=== PATIENT | male | born 1950 | race Caucasian/White ===

== ENCOUNTER → 2025-01-21 | Outpatient (CLI) | payer MEDICARE, SELFPAY ==
--- NOTE | 2025-01-21 08:00 | XR_ITS ---
Examination: MRI lumbar spine without contrast Date and time of exam: January 21, 2025 0900 hrs. Indications: Patient fell 6 months ago with injury to lower back, lower back pain Technique: Multiple MRI axial and sagittal sections lumbar spine. Sagittal T2-weighted images, TR 3500, TE 118 T1 weighted transverse sections, TR 688 T8.5, T2-weighted sagittal sections T1 weighted sagittal sections TR 621, TE 30 T2 axial sections, TR 4, 190, TE 84. Findings: Severe subacute compression fracture L2 vertebral body, retropulsion of the posterior aspect of this vertebral body at least 8 mm No spondylolisthesis L5-S1 2 mm central lumbar disc bulge L4-L5 3 mm central lumbar disc bulge L3-L4 no disc protrusion Impression: Severe subacute compression fracture L2 vertebral body, retropulsion of the posterior aspect of this vertebral body at least [address] scan lumbar spine without contrast follow-up to assess stability of this fracture
== END | disposition home or self-care (01) ==
PROVIDERS: PCP Family Medicine; Referring Provider Family Medicine; Visit Provider Family Medicine
DX: S32.028A Other fracture of second lumbar vertebra, initial encounter for closed fracture (principal); W19.XXXA Unspecified fall, initial encounter
CPT/HCPCS: 72148

== ENCOUNTER 2025-04-06 07:12 | Inpatient (IN) | payer MEDICARE, BC, SELFPAY ==
[2025-04-06] VITALS (7 sets, daily range): BP systolic 115–133; BP diastolic 77–98; PULSE 66–113; RESP 13–96; TEMP 35.7–36.8; O2SAT 93–99
--- NOTE | 2025-04-06 | XR_ITS ---
Examination: MRI brain without intravenous contrast. Date and time of exam: April 06, 2025 1507 hrs. Indications: New onset seizure today Technique: Multiple axial and sagittal images of the brain obtained. Siemens high-resolution 1.5 [place] short bore scanners utilized. Sagittal sections, T1-weighted, TR 500, TE 14, are performed. Axial sections proton-density and T2-weighted have been obtained. Inversion recovery axial images, TR 9, 260, TE 111, TI 2500. Diffusion weighted images, axial sections, TR 4800, TE 128, B value 1000 Axial sections, ADC map, TR 4800, TE 128 Findings: Enlargement of the sella turcica is not present. The optic chiasm and infundibular are not remarkable. Prepontine and interpeduncular cisterns are not enlarged. There is no localized enlargement of the medulla or marline. Fourth ventricle and cerebellar tonsils appear normal in position. No subacute area of hemorrhage density is seen. Mass in the cerebellopontine angle region is not evident. Globes symmetrical. Orbital musculature including medial lateral rectus muscles do not exhibit abnormality. Diffusion-weighted images demonstrate no focus of restricted diffusion. Increased white matter signal prominent Mass effect upon the ventricular system is not identified. Impression: Negative for acute hemorrhage mass effect or midline shift No acute infarct Prominent chronic microvascular white matter change Consider elective brain MRI post contrast follow-up
--- NOTE | 2025-04-06 07:15 | PD.EDADULT ---
ED General RME/HPI General Chief complaint: Seizure Stated complaint: SEIZURES Time Seen by Provider: 04/06/25 07:15 Arrival date/time: 04/06/25 07:12 RME / HPI RME / HPI narrative: DR. CULVER MAIN ED EVALUATION: 75 year old male presents to the Emergency Department [facility] from home with complaint of nonstop seizures that started prior to arrival. EMS states they gave him a total of 12 mg of Versed prior to arrival. No history of seizures. Per EMS, patient was having a focal seizure, his left arm was making repetitive movement and the patient was altered/ nonresponsive. EMS denies full tonic/ clonic activity. PMHx: Hypothyroidism, on levothyroxine. Thyroidectomy, decompression of the right ulnar nerve, and hemorrhoidectomy in the past. Related Data Home Medications ?Medication ?Instructions ?Recorded ?Confirmed levothyroxine 100 mcg tablet 100 mcg PO QDAY 12/05/18 01/09/19 loratadine 10 mg tablet 10 mg PO QDAY PRN Allergy Symptoms 12/05/18 01/09/19 lorazepam 1 mg tablet 1 mg PO BID PRN Anxiety 12/05/18 01/09/19 Previous Rx's ?Medication ?Instructions ?Recorded docusate sodium 100 mg capsule 100 mg PO BID #30 caps 01/10/19 ([place]) hydrocodone 5 mg-acetaminophen 325 1 tab PO Q6H PRN pain #14 tabs 01/10/19 mg tablet ([place]) hydrocodone 5 mg-acetaminophen 325 1 tab PO Q8H PRN pain #10 tabs 08/17/24 mg tablet Allergies Allergy/AdvReac Type Severity Reaction Status Date / Time Penicillins Allergy Severe Swelling Verified 01/10/19 13:19 Sulfa (Sulfonamide Allergy Severe Rash Verified 01/10/19 13:19 Antibiotics) avocado Allergy Mild Hives Verified 01/10/19 13:19 corn Allergy Mild Hives Verified 01/10/19 13:19 banana Allergy Hives Verified 01/10/19 13:19 Review of Systems Review of Systems ROS Unobtainable: unobtainable due to mental status and unobtainable due to medical condition Past Medical History Past Medical History NEUROLOGIC: Positive Migraine; Negative Seizures CARDIAC: Positive Hypertension (no meds); Negative Congestive Heart Failure RESPIRATORY: Positive Asthma and Emphysema; Negative Chronic Obstructive Pulmonary Disease (COPD) GENITOURINARY: Negative Renal Disease MUSCULOSKELETAL: Positive Osteoporosis and Fractures (multiple rib fractures) ENDOCRINE: Negative Diabetes Mellitus Type 1 or Diabetes Mellitus Type 2 OTHER HISTORY: Positive Shingles, Chicken Pox, Measles and Mumps; Negative Blood Transfusions, Blood Transfusion Reaction or Anesthesia Reactions Family History FAMILY HISTORY: Positive Family Cardiac Disorders (mother, father- hypertension) Surgical History SURGICAL: Positive Thyroidectomy Social History SMOKING STATUS: Unknown if ever smoked SUBSTANCE USE: does not use ED Exam Narrative Physical exam: Physical Exam:? General:?? ? Patient is brought in by EMS with evidently multiple seizures that are described more as focal where his left arm was moving but he was not talking not engaging in no generalized seizure activity was witnessed by EMS. The vital signs were reviewed. The patient is arousable with verbal and painful stimuli but immediately falls back to sleep and becomes inattentive. Patient had a spontaneous respirations that required no assistance at this time . O2 sats are adequate at the present time. Head & Scalp:?? ? Normocephalic, atraumatic. Face:?? ? Appears normal and is without lesions, deformity. No apparent trauma Ears:??? Left external pinna appears normal. Right external pinna appears normal. Eyes:?? ? The sclera is anicteric. The Left and Right Orbit/Lid/Conjunctiva appears normal without swelling, discoloration or injection. Nose: ? ? The nose is without deformity, discharge or tenderness; Throat: ? ? Appears normal.? The mucous membranes are pink and moist without exudates, redness or mass seen.? The tongue appears normal. Neck: The neck is supple and no apparent mass or adenopathy. Chest: The chest wall is barrel chest shaped in size and symmetry and has no chest wall tenderness or crepitus. The patient displays adequate ventilator effort without retractions, accessory muscle use. Patient has adequate air movement bilaterally with no wheezes and no rales. ? Cardiovascular: Regular rate and rhythm; No murmurs, rubs, or gallops; Gastrointestinal: The abdomen appears normal.? No obvious hernias or mass. The abdomen is soft and benign, non-distended, with no pain, no guarding and no rebound tenderness.? Bowel sounds are present and normal sounding.? Patient is altered unable to discern if there is any abdominal pain or flank pain. Genitourinary: No apparent injury or trauma. Back/Spine: No apparent injury or trauma Extremities/Musculoskeletal/lymphatic:? ? ? The bilateral upper and lower extremities are warm. There is no evidence of arterial? insufficiency. There is no evidence of venous insufficiency/edema. The patient is obtunded but displays no obvious focal deficits and spontaneously moves bilateral upper and lower extremities with painful or verbal stimuli There is no apparent, injury or trauma. Skin:? The skin is warm, dry and intact.? No rashes. No petechia. No purpura. No abnormal bruising.? The color is appropriate with no cyanosis. Mental status/Psychiatric: Mental status is obtunded no further evaluation can be made Neurological:? The patient is obtunded. The pupils are equal and reactive to light No obvious focal deficits. Patient responds to painful and verbal stimuli. Course Quality Measures none Orders Category Date Time Status Bedside Blood Glucose Q1HR Care 04/06/25 12:27 Active MRI Screening NOW Care 04/06/25 10:53 Active Miscellaneous Nursing Order NOW Care 04/06/25 07:[address] head/brain wo con Stat Exams 04/06/25 07:17 Completed MR head/brain wo con Stat Exams 04/06/25 Ordered Basic Metabolic Panel Stat Lab 04/06/25 11:02 Completed Blood Culture (Lab) Stat Lab 04/06/25 08:20 Received CBC Stat Lab 04/06/25 07:15 Completed Comprehensive Metabolic Panel Stat Lab 04/06/25 07:15 Completed Drug Screen,Urine Stat Lab 04/06/25 08:15 Completed Lactate (Lactic Acid) Stat Lab 04/06/25 07:15 Completed Lactate (Lactic Acid) Stat Lab 04/06/25 12:49 Completed Lactic Acid [Lactate (Lactic Acid)] Stat Lab 04/06/25 11:02 Completed Potassium Stat Lab 04/06/25 11:02 Completed Troponin I Stat Lab 04/06/25 07:15 Completed Urinalysis, C/S if Indicated Stat Lab 04/06/25 08:15 Completed Venous Blood Gas Stat Lab 04/06/25 07:15 Completed Calcium Gluconate 10% Inj Med 04/06/25 12:27 Discontinued 1 gm IV X1 ONE Dextrose 50% Syr [D50w Syringe Abboject] Med 04/06/25 12:27 Discontinued 100 ml IV X1 ONE Insulin Regular Med 04/06/25 12:27 Discontinued 10 unit IV X1 ONE LORazepam [Ativan Inj] Med 04/06/25 07:16 Discontinued 1 mg IVP X1 ONE Sod Polystyrene Sulfon Susp [Kayexalate Susp] Med 04/06/25 12:27 Discontinued 30 gm WI X1 ONE Sodium Bicarb 8.4% 50ml Vial* Med 04/06/25 12:45 Discontinued 50 meq IV X1 ONE Sodium Chloride 0.9% 1000 ml [Ns] 1,000 ml Med 04/06/25 10:54 Discontinued IV 150 mls/hr Sodium Chloride 0.9% 500 ml [Ns] 500 ml Med 04/06/25 10:54 Discontinued IV 999 mls/hr Sodium Chloride Rt Rhonda 0.9% [NS Rt Rhonda 0.9%] Med 04/06/25 12:27 Discontinued 3 ml INH NOW ONE levETIRAcetam INJ [Keppra Inj] Med 04/06/25 09:00 Active 1,000 mg IVP Q12HR EEG Awake and Drowsy Routine RT 04/06/25 11:47 Ordered Vital Signs Vital signs: Vital Signs Temperature 96.3 F L 04/06/25 07:30 Pulse Rate 85 04/06/25 07:30 Respiratory Rate 17 04/06/25 07:30 Blood Pressure 122/88 H 04/06/25 07:30 Pulse Oximetry (%) 99 04/06/25 07:30 Critical Care Time Critical Care Time Critical Care Time: Yes Total Critical Care Time (min.): 45 Attestation: The high probability of sudden, clinically significant deterioration in the patient?s condition required the highest level of my preparedness to intervene urgently. The services I provided to this patient were to treat and/or prevent clinically significant deterioration. Services included the following: chart data review, reviewing nursing notes and/or old charts, documentation time, environmental consultant collaboration regarding findings and treatment options, medication orders and management, direct patient care, vital sign assessments and ordering, interpreting and reviewing diagnostic studies and lab tests. Aggregate critical care time includes only time during which I was engaged in work directly related to the patient?s care, as described above, whether at bedside or elsewhere in the Emergency Department. It did not include time spent performing other reported procedures or the services of residents, students, nurses or physician assistants. Discharge Plan Plan Patient Disposition: Admit Acute Care w/in Hospital Discharge Disposition comment: Hospitalist admit Dr Miller to can Problem List Clinical Impression: Complex partial status epilepticus, NARA (acute kidney injury), Hyperkalemia MDM Narrative MDM hospital course: came later to the emergency department and provided more information approximately 100 hours and even provided a video that the patient standing but is unresponsive to questions he is literally moving his right arm [id number] involuntarily and it appears to be a partial complex seizure. Evidently patient had several episodes of this. There was never any generalized shaking movement or tonic movement observed. Patient was brought in by EMS because of the same thing as above got 16 mg of intranasal Versed which stopped the shaking movements but he was quite sedate when he arrived. Patient had RT come stat to the room on arrival and we observed him and his ventilations were sustained and tolerated nasal trumpet throughout the ER course so far. After was confirmed that his airway was safe for going to the scanner went over the CT scanner and that came back and negative with no bleed and no other or obvious pathology. Patient loaded with Keppra then additional Ativan to prevent any further seizures while we did the rest of the workup. White count came back at 11.6 hemoglobin of 15.2 comprehensive metabolic panel came back with a sodium 143 potassium 5.3 chloride 110, BUN 25 creatinine 1.5 glucose was 113. Transaminases and bilirubin came back normal. Calcium was normal lactic acid was 1.6 troponin was negative urinalysis unremarkable talk screen came back positive for opioids and benzos Patient did not come with any medicines and no past history was known but when the came she brought the medicine bag and in the bag we found baclofen and hydrocodone and these are epidemic being given for the past 5 months for a compression fracture that was diagnosed in [place] where he has been having chronic pain since that time. states the patient is private about his medicine so she does not know how often he is taking them but note there is only 3 tablets of the baclofen left. And that prescription was filled in October of this year. I consulted Dr. Miller our neurologist and she wants to get an MRI and EEG and the hospitalist was called spoke with Dr. Marrero the resident and they will be admitting Note the patient is tremendously sedated at this time he does arouse to painful stimuli and is protecting his airway with a nasal trumpet throughout the ER course. Note the potassium was slightly elevated 5.3 and a slight bump in the renal function. Will recheck that in the next hour. 1228: Initial potassium was 5.3 and repeat now was 6.1. I will treat for hyperkalemia. I, Virginia Diaz, am scribing for and in the presence of Dr. Culver. Clinical Information Provided by EMS Medical Records Reviewed [facility] and EMS Meds/Rx Considered, not Ordered None Labs/Rad/Tests considered, not Ordered None Chronic Illness/Social Conditions Add or document further as needed: Hypothyroidism, on levothyroxine. Thyroidectomy, decompression of the right ulnar nerve, and hemorrhoidectomy in the past. EKG EKG not done Lab Interpretation Labs: see narrative above Imaging Imaging interpretation: see narrative above Radiology reports / interpretation(s): Procedure(s): CT head/brain wo con Accession Number(s): [id number] cc: Walt Culver MD; Ermias Valderrama MD; NO PRIMARY/FAMILY,PHYSICIAN~ Examination: CT brain head without contrast. 2-D sagittal coronal reconstructions Date and time of exam:April 06, 2025 0753 hours Seizure this morning followed by altered mental status CTDI: vol (mGy):51 DLP: (mGycm):1143 Technique: Multiple CT axial sections of the brain have been obtained, 5 mm slice thickness. Contrast has not been administered. 2-D sagittal, coronal reconstructions have been obtained Low dose protocols were performed. One or more of the following dose reduction techniques were used; automated exposure control, adjustment of the mA and/or KV according to patient size, use of iterative reconstruction technique. Findings: No significant ventricular enlargement. 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 No mass effect or midline shift Basal cisterns are not remarkable. Fourth ventricle is midline. Cranial vault intact. Impression: Negative for acute hemorrhage, mass effect or midline shift Consider brain MRI follow-up, it active, seizure protocol Dictated By: Ermias Valderrama MD Medication Administration(s) Medication Administration History Acetaminophen (Acetaminophen 325 Mg Tablet) 650 mg PO Q6H PRN PRN Reason: Fever >100.3 or pain Stop: 05/06/25 12:39 Heparin Sodium (Porcine) (Heparin Sod Inj 5000 Unit/Ml Vial) 5,000 unit SC Q8HR SIERRA Stop: 04/20/25 13:59 Sodium Chloride (Ns) 1,000 mls @ 85 mls/hr IV .[id number] ONE Stop: 04/07/25 00:31 Last Admin: 04/06/25 13:07 Dose: 85 mls/hr Documented By: TM Lactulose (Lactulose Syrup 20 Gm/30 Ml Udc) 10 gm PO QDAY PRN; Protocol PRN Reason: constipation Stop: 05/06/25 12:44 Levetiracetam (Levetiracetam Inj 100 Mg/Ml Vial 5ml) 1,000 mg IVP Q12HR [place] Stop: 05/06/25 08:59 Last Admin: 04/06/25 07:57 Dose: 1,000 mg Documented By: TM Ondansetron HCl (Ondansetron Inj 2 Mg/Ml Inj 2 Ml) 4 mg IVP Q6H PRN; Protocol PRN Reason: NAUSEA OR VOMITING Stop: 05/06/25 12:39 Discontinued Medications Calcium Gluconate (Calcium Gluconate 10% Inj 1 Gm/10 Ml Vial) 1 gm IV X1 ONE Stop: 04/06/25 12:28 Last Admin: 04/06/25 13:06 Dose: 1 gm Documented By: TM Dextrose (Dextrose 50%-Water Inj 50 Ml Syringe) 100 ml IV X1 ONE Stop: 04/06/25 12:28 Last Admin: 04/06/25 13:06 Dose: 100 ml Documented By: TM Sodium Chloride (Ns) 1,000 mls @ 150 mls/hr IV .[id number] ONE Stop: 04/06/25 17:33 Last Admin: 04/06/25 11:23 Dose: 150 mls/hr Documented By: CORNEL Sodium Chloride (Ns) 500 mls @ 999 mls/hr IV .Q31M ONE Stop: 04/06/25 11:24 Last Admin: 04/06/25 11:19 Dose: 999 mls/hr Documented By: CORNEL Insulin Human Regular (Insulin Hum Regular 1 Unit/0.01 Ml (Per Unit)) 10 unit IV X1 ONE Stop: 04/06/25 12:28 Last Admin: 04/06/25 13:05 Dose: 10 unit Documented By: CORNEL Co-signed By: KELLY Lorazepam (Lorazepam 2 Mg/Ml Vial) 1 mg IVP X1 ONE Stop: 04/06/25 07:17 Last Admin: 04/06/25 07:57 Dose: Not Given Documented By: TM Non-Admin Reason: Contraindicated Sodium Bicarbonate (Sodium Bicarb Inj 8.4% 1 Meq/Ml 50 Ml Vial) 50 meq IV X1 ONE Stop: 04/06/25 12:46 Last Admin: 04/06/25 13:05 Dose: 50 meq Documented By: CORNEL Sodium Chloride (Sodium Chloride Rt Rhonda 0.9% 3 Ml Nebu) 3 ml INH NOW ONE Stop: 04/06/25 12:28 Sodium Polystyrene Sulfonate (Sod Polystyrene Sulfon Susp 15 Gm/60 Ml Btl) 30 gm [place] X1 ONE Stop: 04/06/25 12:28 Consultations/Discussions re: Management Consult #1: Date/time: 04/06/25 11:49 am Physician, specialty, service, details: Discussed test HPI, PMHx, lab, radiology results and/or management with resident working with the hospitalist. Will admit for further evaluation and management. Accepts patient for admission. See narrative above. Diagnosis Differential diagnosis: new onset seizure, status epilepticus, seizure Dispositon Disposition: Admit
--- NOTE | 2025-04-06 07:25 | PC.NURSE ---
HARINI FROM HOME FOR FOCAL SEIZURE, NO KNOWN HX. RECEIVED 12MG VERSED INTRANASAL. PER EMS PT WAS REPEATING HIMSELF, ABLE TO TRACK YOU WITH HIS EYES BUT UNABLE TO SPEAK. PT CAME IN BEING BAGGED BY EMS, ONCE HERE PT ABLE TO BREATHE ON HIS OWN, SPO2 99% ON RA. PT TAKEN TO CT BY RT AND TEJAL ORTIZ.
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
[2025-04-06 07:53] LABS: Lactate (Lactic Acid) 2.4 mMol/L (0.4-2.0)
[2025-04-06 07:55] LABS: Base Excess, Venous -1 (-3-3); O2 Saturation, Venous 90 % (96-97); PCO2, Venous 43 mmHg (36-56); PO2, Venous 61 mmHg (15-58); pH, Venous 7.37 (7.33-7.66)
[2025-04-06] MEDS: levETIRAcetam INJ 100 MG/ML VIAL 5ML 1000 MG IVP ×2 (07:57→20:47)
[2025-04-06 08:02] LABS: Basophils % (Auto) 0 % (0-2.5); Eosinophils % (Auto) 0 % (0-10); Hematocrit 42.6 % (41.0-53.0); Hemoglobin 15.2 g/dL (13.5-16.0); Immature Granulocytes % (Auto) 0 % (0-0); Immature Granulocytes Auto 0.04 Thou/mm3 (0.00-0.00); Lymphocytes # (Auto) 2.1 Thou/mm3 (1.0-4.8); Lymphocytes % (Auto) 18 % (10-50); Mean Corpuscular HGB Conc 35.7 g/dl (31.0-37.0); Mean Corpuscular Hemoglobin 31.1 pg (25.0-35.0); Mean Corpuscular Volume 87 fL (80-100); Monocytes # (Auto) 0.8 Thou/mm3 (0.0-0.8); Monocytes % (Auto) 7 % (0-12); Neutrophils # (Auto) 8.7 Thou/mm3 (1.8-7.7); Neutrophils % (Auto) 75 % (37-80); Nucleated Red Blood Cell % 0 /100 WBC (0); Platelet Count 341 Thou/mm3 (140-440); RDW Standard Deviation 44.1 fL (35.1-43.9); Red Blood Count 4.89 Miln/mm3 (4.50-5.90); White Blood Count 11.6 Thou/mm3 (3.8-10.6)
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
[2025-04-06 08:20] LABS: Alanine Aminotransferase 47 U/L (10-49); Albumin, Serum 4.3 gm/dL (3.4-4.8); Albumin/Globulin Ratio 1.8 (1.2-2.2); Alkaline Phosphatase 124 U/L (46-116); Anion Gap 12 (7-16); Aspartate Amino Transferase 31 U/L (0-34); BUN/Creatinine Ratio 17 Ratio (12-20); Bilirubin,Total 0.4 mg/dL (0.3-1.2); Blood Urea Nitrogen 25 mg/dL (9-23); Calcium 9.7 mg/dL (8.3-10.6); Calcium (Corrected) 9.7 mg/dL (8.5-10.1); Carbon Dioxide 21.3 mMol/L (20.0-31.0); Chloride 110 mMol/L (98-107); Creatinine (Component) 1.5 mg/dL (0.6-1.3); Globulin 2.4 gm/dL (2.3-3.5); Glucose 113 mg/dL (74-106); Osmolality,Calculated 290 (275-295); Potassium 5.3 mMol/L (3.4-5.1); Sodium 143 mMol/L (136-145); Total Protein 6.7 gm/dL (5.7-8.2); Troponin I < 0.020 ng/mL (0.0-0.045); eGFR 49 See Note
[2025-04-06 08:56] LABS: Collection Type, Urine Catheter
[2025-04-06 09:06] LABS: Bilirubin,Urine Negative (Negative); Blood,Urine Negative (Negative); Clarity,Urine Clear (Clear/Hazy); Color,Urine Lt-Yellow (Lt Yel-Yel); Culture Indicated,Urine Not Indicated; Glucose, Urine Negative (Negative); Hyaline Casts,Urine < 1 /hpf (0-1); Ketones,Urine Negative (Negative); Leukocyte Esterase,Urine Negative (Negative); Nitrite,Urine Negative (Negative); Protein,Urine Negative (Neg - Trace); RBC,Urine 1 /hpf (0-3); Specific Gravity,Urine 1.023 (1.001-1.035); Squamous Epithelial Cell,Urine < 1 /hpf (0-5); Urobilinogen,Urine Negative mg/dL (0.0-1.0); WBC,Urine 1 /hpf (0-5)
[2025-04-06 09:42] LABS: Amphetamine/Methamp Scrn,U Negative (Negative); Barbiturate Screen,Urine Negative (Negative); Benzodiazepines Screen,Urine Positive (Negative); Benzoylecgonine Screen, Ur Negative (Negative); Fentanyl Screen,Urine Negative (Negative); Opiate Screen,Urine Positive (Negative); THC Screen,Urine Negative (Negative)
[2025-04-06 10:50] LABS: Reflex Lactate? Y
[2025-04-06 11:09] LABS: Lactate (Lactic Acid) 1.6 mMol/L (0.4-2.0)
[2025-04-06] MEDS: SODIUM CHLORIDE 0.9% 500 ML 500 ML 999 ML IV (11:19)
[2025-04-06] MEDS: SODIUM CHLORIDE 0.9% 1000 ML 1,000 ML 150 ML IV (11:23)
--- NOTE | 2025-04-06 11:28 | PC.NURSE ---
PT MORE ALERT NOW, AT BEDSIDE ATTEMPTING TO TALK TO PT. PT SAID HI FIRST AND ONLY WORD SPOKEN UP TO THIS POINT. ADDITIONAL PILLOWS APPLIED AT THIS TIME FOR COMFORT. WILL CONT W/POC
[2025-04-06 11:58] LABS: Potassium 4.8 mMol/L (3.4-5.1)
[2025-04-06 12:22] LABS: Anion Gap 12 (7-16); BUN/Creatinine Ratio 23 Ratio (12-20); Blood Urea Nitrogen 34 mg/dL (9-23); Calcium 9.7 mg/dL (8.3-10.6); Carbon Dioxide 23.1 mMol/L (20.0-31.0); Chloride 109 mMol/L (98-107); Creatinine (Component) 1.5 mg/dL (0.6-1.3); Glucose 86 mg/dL (74-106); Osmolality,Calculated 293 (275-295); Sodium 144 mMol/L (136-145); eGFR 49 See Note
[2025-04-06 12:25] LABS: Potassium 6.1 mMol/L (3.4-5.1)
--- NOTE | 2025-04-06 12:39 | PC.RT ---
Went to assess Patient to see if he was stable enough to move to RT lab for EEG. Patient is to unstable to move at this time. EEG will be completed when Patient is admitted to his room.
[2025-04-06 12:55] LABS: Lactate (Lactic Acid) 1.3 mMol/L (0.4-2.0)
[2025-04-06] MEDS: SODIUM BICARB INJ 8.4% 1 mEq/ML 50 ML VIAL 50 MEQ IV (13:05)
[2025-04-06] MEDS: INSULIN HUM REGULAR 1 UNIT/0.01 ML (PER UNIT) 10 UNIT IV (13:05)
[2025-04-06] MEDS: DEXTROSE 50%-WATER INJ 50 ML SYRINGE 100 ML IV (13:06)
[2025-04-06] MEDS: CALCIUM GLUCONATE 10% INJ 1 GM/10 ML VIAL IV (13:06)
[2025-04-06] MEDS: SODIUM CHLORIDE 0.9% 1000 ML 1,000 ML 85 ML IV (13:07)
--- NOTE | 2025-04-06 13:07 | ESHP_ITS ---
Documentation for date of: 04/06/25 HPI History of Present Illness Chief complaint: confusion and arm moving History of present illness: Jerry Brooks is 75 yr male with PMH of hypertension, hypothyroidism, chronic back pain presenting to ED by via EMS due to altered mental status and family witnessing abnormal right arm movement. Patient's is at bedside who was able to provide video. Appeared that the right arm was rotating in a slow circular movement. He was responding to prompts but not making sense. denies noticing any tounge biting, bladder/bowel incontinence. For the past few days he was at his baseline. Patient typically is able to complete ADLs with no issues. EMS administered about 12 mg of Versed and denied noticing any tonic clonic activity. He has never had seizures in the past. The arm movement had stopped after arriving to the ED. Initial vitals were stable, WBC 11.6, VBG unremarkable. Potassium 5.3 with repeat uptrended to 6.1, NARA with Cr 1.5 (baseline around 1.0), normal LA, UA negative, Utox positive fore opiates and benzos. CT head Negative for acute hemorrhage, mass effect or midline shift. 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 CT lumbar spine showed severe subacute compression fracture L2 vertebral body. He was given loading dose of Keppra, half liter bolus NS, maintenance fluids NS, hyperkalemia cocktail. Neurology Dr. Miller was consulted and patient admitted for acute encephalopathy 2/2 new onset seizure. 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 HEENT: NCAT, No JVD noted. Mucosa moist. Pupils are equal and reactive to light bilaterally Cardiovascular: Normal S1 and S2. Regular rate and rhythm. Respiratory: Lungs are clear to auscultation bilaterally. No wheezing or crackles heard. Abdomen: Soft, nontender, not distended, normal bowel sounds. Skin: Warm to touch, dry, no rashes noted Musculoskeletal: No gross injuries. No pitting edema Neuro: GCS 9 (non verbal, with draws to pain, opens eyes on command) No focal neuro deficits. Results: Labs 04/06/25 07:15 04/06/25 11:02 Labs: Short CBC 04/06/25 Range/Units 07:15 WBC 11.6 H (3.8-10.6) Thou/mm3 Hgb 15.2 (13.5-16.0) g/dL Hct 42.6 (41.0-53.0) % Plt Count 341 (140-440) Thou/mm3 BMP 04/06/25 04/06/25 04/06/25 07:15 11:02 11:02 Sodium 143 144 Potassium 5.3 H 4.8 D 6.1 H* D Chloride 110 H 109 H Carbon Dioxide 21.3 23.1 BUN 25 H 34 H Creatinine 1.5 H 1.5 H Glucose 113 H 86 Calcium 9.7 9.7 Cardiac Enzymes 04/06/25 Range/Units 07:15 Troponin I < 0.020 (0.0-0.045) ng/mL Liver Function 04/06/25 Range/Units 07:15 Total Bilirubin 0.4 (0.3-1.2) mg/dL AST 31 (0-34) U/L ALT 47 (10-49) U/L Alkaline Phosphatase 124 H (46-116) U/L Albumin 4.3 (3.4-4.8) gm/dL Urine 04/06/25 Range/Units 08:15 Urine Color Lt-Yellow (Lt Yel-Yel) Urine Clarity Clear (Clear/Hazy) Urine pH 5.0 (5.0-7.0) Ur Specific [place] 1.023 (1.001-1.035) Urine Protein Negative (Neg - Trace) Urine Glucose (UA) Negative (Negative) ABG Interpretation ABG results: 04/06/25 07:15 VBG pH 7.37 VBG pCO2 43 VBG pO2 61 H VBG Base Excess -1 Quality Measures Quality Measures none Advance care planning discussed with:: spouse Medications Home Medications and Allergies Home Medications ?Medication ?Instructions ?Recorded ?Confirmed ?Type levothyroxine 100 mcg tablet 100 mcg PO QDAY 12/05/18 04/06/25 History loratadine 10 mg tablet 10 mg PO QDAY PRN Allergy Sy mptoms 12/05/18 04/06/25 History lorazepam 1 mg tablet 1 mg PO BID PRN Anxiety 11/1704/06/25 History hydrocodone 10 mg-acetaminophen 1 tab PO Q8H PRN pain 04/06/25 04/06/25 History 325 mg tablet thyroid (pork) 90 mg tablet (PETROLEUM REFINING EQUIPMENT OPERATOR 90 mg PO DAILY 5 04/06/25 History Thyroid) thyroid (pork) 90 mg tablet (PETROLEUM REFINING EQUIPMENT OPERATOR 90 mg PO QDAY 04/06/25 04/06/25 History Thyroid) valsartan 160 1 tab PO DAILY 04/06/2503/18 History mg-hydrochlorothiazide 12.5 mg tablet Allergies Allergy/AdvReac Type Severity Reaction Status Date / Time Penicillins Allergy Severe Swelling Verified 01/10/19 13:19 Sulfa (Sulfonamide Allergy Severe Rash Verified 01/10/19 13:19 Antibiotics) avocado Allergy Mild Hives Verified 01/10/19 13:19 corn Allergy Mild Hives Verified 01/10/19 13:19 banana Allergy Hives Verified 01/10/19 13:19 Visit Medications Acetaminophen (Acetaminophen 325 Mg Tablet) 650 mg PO Q6H PRN PRN Reason: Fever >100.3 or pain Stop: 05/06/25 12:39 Heparin Sodium (Porcine) (Heparin Sod Inj 5000 Unit/Ml Vial) 5,000 unit SC Q8HR SIERRA Stop: 04/20/25 13:59 Sodium Chloride (Ns) 1,000 mls @ 85 mls/hr IV .[id number] ONE Stop: 04/07/25 00:31 Lactulose (Lactulose Syrup 20 Gm/30 Ml Udc) 10 gm PO QDAY PRN; Protocol PRN Reason: constipation Stop: 05/06/25 12:44 Levetiracetam (Levetiracetam Inj 100 Mg/Ml Vial 5ml) 1,000 mg IVP Q12HR SIERRA Stop: 05/06/25 08:59 Last Admin: 04/06/25 07:57 Dose: 1,000 mg Ondansetron HCl (Ondansetron Inj 2 Mg/Ml Inj 2 Ml) 4 mg IVP Q6H PRN; Protocol PRN Reason: NAUSEA OR VOMITING Stop: 05/06/25 12:39 Discontinued Medications Calcium Gluconate (Calcium Gluconate 10% Inj 1 Gm/10 Ml Vial) 1 gm IV X1 ONE Stop: 04/06/25 12:28 Dextrose (Dextrose 50%-Water Inj 50 Ml Syringe) 100 ml IV X1 ONE Stop: 04/06/25 12:28 Sodium Chloride (Ns) 1,000 mls @ 150 mls/hr IV .Q6H40M ONE Stop: 04/06/25 17:33 Last Admin: 04/06/25 11:23 Dose: 150 mls/hr Sodium Chloride (Ns) 500 mls @ 999 mls/hr IV .Q31M ONE Stop: 04/06/25 11:24 Last Admin: 04/06/25 11:19 Dose: 999 mls/hr Insulin Human Regular (Insulin Hum Regular 1 Unit/0.01 Ml (Per Unit)) 10 unit IV X1 ONE Stop: 04/06/25 12:28 Lorazepam (Lorazepam 2 Mg/Ml Vial) 1 mg IVP X1 ONE Stop: 04/06/25 07:17 Last Admin: 04/06/25 07:57 Dose: Not Given Sodium Bicarbonate (Sodium Bicarb Inj 8.4% 1 Meq/Ml 50 Ml Vial) 50 meq IV X1 ONE Stop: 04/06/25 12:46 Sodium Chloride (Sodium Chloride Rt Rhonda 0.9% 3 Ml Nebu) 3 ml INH NOW ONE Stop: 04/06/25 12:28 Sodium Polystyrene Sulfonate (Sod Polystyrene Sulfon Susp 15 Gm/60 Ml Btl) 30 gm ND X1 ONE Stop: 04/06/25 12:28 Assessment & Plan Plan Jerry Brooks is 75 yr male with PMH of hypertension, hypothyroidism, chronic back pain presenting to ED 04/06/25 by via EMS due to altered mental status and family witnessing abnormal right arm movement. Concern for new onset siezure. Neurology Dr. Miller was consulted and patient admitted for acute encephalopathy 2/2 new onset seizure and electrolyte imbalances. #Acute metabolic encephalopathy Most likelye due to new onset sizure, electrolytes imbalances. No identifiable source of infection, normal lactic acid. Family witnessed him making slow circular movements of right arm. He was responding to prompts but not making sense. CT head Negative for acute hemorrhage, mass effect or midline shift. 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 Potassium uptrended to 6.1 in ED. He was given loading dose of Keppra, half liter bolus NS, maintenance fluids NS, hyperkalemia cocktail. -Dr. Miller consulted, appreciate recs -EEG pending -NPO pending swallow eval -IV lorazepam 2 mg as needed for seizure -Aspiration precaution -Head of bed elevation -Seizure precaution -TSH pending, repeat BMP pending #NARA BUN 34, Cr 1.5 (baseline around 1.0), BUN/Cr 23. Pre renal based off ratio. Likely in setting of decreased PO intake. -maintenance fluids NS 85cc/hr -avoid nephrotoxic agents -daily CMP # Electrolyte imbalances #Hyperkalemia Medication induced, underlying NARA Potassium 5.3 with repeat uptrended to 6.1. Gave 10 units regular insulin x 1, Kayexalate, albuterol, calcium gluconate -repeat BMP 4pm -daily CMP -repeat inuslin 10 units regular x1 if still elevated #Hypertension Resume valsartan 160mg-HCTZ 12.5 mg daily after swallow eval. #chronic back pain From a fall. Resume home norco 10 q8hr PRN for pain after swallow eval #Hypothyroidism Takes PETROLEUM REFINING EQUIPMENT OPERATOR thyroid 90 mg daily. Resume after swallow eval Health maintenance: Dispo: tele new onset seizure FEN: NPO pending swallow eval DVT prophylaxis: Subcu heparin CODE STATUS: Full code The patient's management plan was discussed with my attending physician Dr. Martines. Amberly Burgess, PGY-1 Attending Provider Attestation/Addendum I attest that I was physically present for the evaluation, physical examination, lab and imaging review of the patient with the residents. I discussed the case with the residents and agree with the findings and plans of care as documented above. Patient is a 75 years old male with past medical history of hypertension, hypothyroidism, chronic back pain who presented to the ED with complaint of altered mental status and abnormal body movement. Patient had rhythmic and repetitive movement of right arm and was not responding to commands. Patient was confused after the episode as per the at bedside. She denied any tongue biting, bladder or bowel incontinence. Patient does not have history of seizure disorder. In the ED, patient continues to be confused and unable to follow command at bedside. Vitals were stable. Lab results show WBC of 11.6, potassium 5.3, creatinine 1.5. Later on potassium up trended to 6.1. CT head was obtained, which was negative for acute finding but showed old infarct in left parietal lobe and basal ganglia. Lumbar spine CT showed subacute compression fracture of L2 vertebral body. After examination of the patient and review of the clinical data I feel that this patient needs admission to the hospital for further treatment/evaluation of acute encephalopathy in setting of possible new onset seizure, NARA and electrolyte imbalances. Patient received IV Versed with EMS. We will continue with as needed IV lorazepam for seizure episode. Brain MRI we will obtain neurology consult. We will add aspiration precaution, seizure precaution, neurochecks, speech and physical therapy evaluation. Started on IV hydration for NARA. Patient received insulin, Kayexalate, albuterol and calcium gluconate for hyperkalemia, we will follow-up with BMP. Brandan Martines MD
[2025-04-06] MEDS: SOD POLYSTYRENE SULFON SUSP 15 GM/60 ML BTL 30 GM PR (14:17)
[2025-04-06] MEDS: HEPARIN SOD INJ 5000 UNIT/ML VIAL SC ×2 (14:38→21:21)
[2025-04-06] MEDS: LORazepam 2 MG/ML VIAL 1 MG IVP (14:39)
--- NOTE | 2025-04-06 15:02 | PC.NURSE ---
HAND OFF GIVEN TO PATSY BAIRES, PT TAKEN TO MRI FIRST AND WILL GO TO FLOOR AFTER. WENT TO 2ND FLOOR WAITING ROOM TO WAIT FOR PT.
[2025-04-06 16:49] LABS: Anion Gap 9 (7-16); BUN/Creatinine Ratio 20 Ratio (12-20); Blood Urea Nitrogen 24 mg/dL (9-23); Calcium 9.3 mg/dL (8.3-10.6); Carbon Dioxide 25.9 mMol/L (20.0-31.0); Chloride 111 mMol/L (98-107); Creatinine (Component) 1.2 mg/dL (0.6-1.3); Glucose 109 mg/dL (74-106); Osmolality,Calculated 295 (275-295); Sodium 146 mMol/L (136-145); eGFR > 60 See Note
[2025-04-06] MEDS: DiphenhydrAMINE INJ 50 MG/ML VIAL 12.5 MG IVP (21:18)
--- NOTE | 2025-04-06 22:16 | PC.NURSE ---
MD Jarrell notified that patient is agitated and restless. Patient's is at the bedside and is asking to speak to MD. MD said he will come see patient
--- NOTE | 2025-04-06 22:46 | PD.VCONSULT1 ---
Telemedicine visit statement This visit was conducted with the use of interactive audio and video telecommunications system that permits real time communication between the patient and the provider. Patient's verbal consent for virtual visit was obtained on 04/06/25 at 2246. History of Present Illness History of Present Illness History of present illness: MR. Jerry Brooks is 75 yr male with PMH of hypertension, hypothyroidism, chronic back pain presenting to ED by via EMS due to altered mental status and family witnessing abnormal right arm movement. He was responding to prompts but not making sense. No noticed tongue laceration, bladder/bowel incontinence. For the past few days he was not at his baseline. Patient typically is able to complete ADLs with no issues. EMS administered about 12 mg of Versed and no witnessed generalized tonic clonic activity. He has never had seizures in the past. The arm movement had stopped after coming to ER. Workup in the ER: vitals were stable, Labs: WBC 11.6, VBG unremarkable. Potassium 5.3 with repeat uptrended to 6.1, NARA with Cr 1.5 (baseline around 1.0), normal LA, UA negative, Utox positive fore opiates and benzos. Imaging: CT head Negative for acute hemorrhage, mass effect or midline shift. Noted old infarct left parietal lobe and left basal ganglia, right caudate nucleus. CT lumbar spine showed severe subacute compression fracture L2 vertebral body. He was given loading dose of Keppra, half liter bolus NS, maintenance fluids NS, hyperkalemia cocktail. Neurology was consulted and I recommended patient to be admitted for acute encephalopathy 2/2 new onset seizure. P Past Medical History Past Medical History NEUROLOGIC: Positive Migraine; Negative Seizures CARDIAC: Positive Hypertension (no meds); Negative Congestive Heart Failure RESPIRATORY: Positive Asthma and Emphysema; Negative Chronic Obstructive Pulmonary Disease (COPD) GENITOURINARY: Negative Renal Disease MUSCULOSKELETAL: Positive Osteoporosis and Fractures (multiple rib fractures) ENDOCRINE: Negative Diabetes Mellitus Type 1 or Diabetes Mellitus Type 2 OTHER HISTORY: Positive Shingles, Chicken Pox, Measles and Mumps; Negative Blood Transfusions, Blood Transfusion Reaction or Anesthesia Reactions Family History FAMILY HISTORY: Positive Family Cardiac Disorders (mother, father- hypertension) Surgical History SURGICAL: Positive Thyroidectomy Social History SMOKING STATUS: Unknown if ever smoked SUBSTANCE USE: does not use TeleMedicine ROS Pertinent Review of Systems ROS Unobtainable: unobtainable due to mental status Meds Home Medications and Allergies Home Medications ?Medication ?Instructions ?Recorded ?Confirmed ?Type levothyroxine 100 mcg tablet 100 mcg PO QDAY 12/05/18 04/06/25 History loratadine 10 mg tablet 10 mg PO QDAY PRN Allergy Symptoms 12/05/18 04/06/25 History lorazepam 1 mg tablet 1 mg PO BID PRN Anxiety 12/05/18 04/06/25 History hydrocodone 10 mg-acetaminophen 1 tab PO Q8H PRN pain 04/06/25 04/06/25 History 325 mg tablet thyroid (pork) 90 mg tablet (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 90 mg PO DAILY 04/06/25 04/06/25 History Thyroid) thyroid (pork) 90 mg tablet (WELDER 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 90 mg PO QDAY 04/06/25 04/06/25 History Thyroid) valsartan 160 1 tab PO DAILY 04/06/25 04/06/25 History mg-hydrochlorothiazide 12.5 mg tablet Allergies Allergy/AdvReac Type Severity Reaction Status Date / Time Penicillins Allergy Severe Swelling Verified 01/10/19 13:19 Sulfa (Sulfonamide Allergy Severe Rash Verified 01/10/19 13:19 Antibiotics) avocado Allergy Mild Hives Verified 01/10/19 13:19 corn Allergy Mild Hives Verified 01/10/19 13:19 banana Allergy Hives Verified 01/10/19 13:19 Virtual exam Vital Signs Temp Pulse Resp BP Pulse Ox O2 Del Method O2 Flow Rate 97.9 F 103 H 13 131/77 H 96 Oxy Mask 1 04/06/25 20:00 04/06/25 20:00 04/06/25 20:00 04/06/25 20:00 04/06/25 20:00 04/06/25 20:00 04/06/25 20:00 Results Labs 04/06/25 07:15 04/06/25 16:22 Labs: Short CBC 04/06/25 Range/Units 07:15 WBC 11.6 H (3.8-10.6) Thou/mm3 Hgb 15.2 (13.5-16.0) g/dL Hct 42.6 (41.0-53.0) % Plt Count 341 (140-440) Thou/mm3 BMP 04/06/25 04/06/25 04/06/25 07:15 11:02 11:02 Sodium 143 144 Potassium 5.3 H 4.8 D 6.1 H* D Chloride 110 H 109 H Carbon Dioxide 21.3 23.1 BUN 25 H 34 H Creatinine 1.5 H 1.5 H Glucose 113 H 86 Calcium 9.7 9.7 04/06/25 16:22 Sodium 146 H Potassium 4.0 D Chloride 111 H Carbon Dioxide 25.9 BUN 24 H Creatinine 1.2 Glucose 109 H Calcium 9.3 Cardiac Enzymes 04/06/25 Range/Units 07:15 Troponin I < 0.020 (0.0-0.045) ng/mL Liver Function 04/06/25 Range/Units 07:15 Total Bilirubin 0.4 (0.3-1.2) mg/dL AST 31 (0-34) U/L ALT 47 (10-49) U/L Alkaline Phosphatase 124 H (46-116) U/L Albumin 4.3 (3.4-4.8) gm/dL Urine 04/06/25 Range/Units 08:15 Urine Color Lt-Yellow (Lt Yel-Yel) Urine Clarity Clear (Clear/Hazy) Urine pH 5.0 (5.0-7.0) Ur Specific [place] 1.023 (1.001-1.035) Urine Protein Negative (Neg - Trace) Urine Glucose (UA) Negative (Negative) ABG Interpretation ABG results: 04/06/25 07:15 VBG pH 7.37 VBG pCO2 43 VBG pO2 61 H VBG Base Excess -1 Assessment & Plan Problem List (1) New onset seizure: Status: Acute Assessment and plan: FU with EEG and MRI brain (2) Hypertension: Status: Chronic Assessment and plan: continue home meds (3) Hyperkalemia: Status: Acute Assessment and plan: got the cocktail, will fu with renal panel (4) NARA (acute kidney injury): Status: Acute Assessment and plan: given IVF, follow up with renal panel.
[2025-04-07] VITALS (10 sets, daily range): BP systolic 123–153; BP diastolic 73–95; PULSE 72–98; RESP 12–97; TEMP 36.4–37.2; O2SAT 96–98
[2025-04-07] MEDS: HEPARIN SOD INJ 5000 UNIT/ML VIAL SC ×3 (05:27→21:32)
[2025-04-07 06:07] LABS: Basophils % (Auto) 0 % (0-2.5); Eosinophils % (Auto) 0 % (0-10); Hematocrit 38.3 % (41.0-53.0); Hemoglobin 13.7 g/dL (13.5-16.0); Immature Granulocytes % (Auto) 0 % (0-0); Immature Granulocytes Auto 0.03 Thou/mm3 (0.00-0.00); Lymphocytes # (Auto) 1.8 Thou/mm3 (1.0-4.8); Lymphocytes % (Auto) 16 % (10-50); Mean Corpuscular HGB Conc 35.8 g/dl (31.0-37.0); Mean Corpuscular Hemoglobin 30.7 pg (25.0-35.0); Mean Corpuscular Volume 86 fL (80-100); Monocytes % (Auto) 9 % (0-12); Neutrophils # (Auto) 8.4 Thou/mm3 (1.8-7.7); Neutrophils % (Auto) 74 % (37-80); Nucleated Red Blood Cell % 0 /100 WBC (0); Platelet Count 264 Thou/mm3 (140-440); RDW Standard Deviation 43.4 fL (35.1-43.9); Red Blood Count 4.46 Miln/mm3 (4.50-5.90); White Blood Count 11.3 Thou/mm3 (3.8-10.6)
[2025-04-07 06:10] LABS: Glucose Estimated Average 100 mg/dL (80-131); Hemoglobin A1C 5.1 % Hgb (4.8-6.0)
[2025-04-07 06:29] LABS: Alanine Aminotransferase 38 U/L (10-49); Albumin/Globulin Ratio 1.9 (1.2-2.2); Alkaline Phosphatase 113 U/L (46-116); Anion Gap 10 (7-16); Aspartate Amino Transferase 26 U/L (0-34); BUN/Creatinine Ratio 20 Ratio (12-20); Bilirubin,Total 0.9 mg/dL (0.3-1.2); Blood Urea Nitrogen 22 mg/dL (9-23); Calcium 9.1 mg/dL (8.3-10.6); Calcium (Corrected) 9.1 mg/dL (8.5-10.1); Chloride 110 mMol/L (98-107); Creatinine (Component) 1.1 mg/dL (0.6-1.3); Globulin 2.1 gm/dL (2.3-3.5); Glucose 115 mg/dL (74-106); Osmolality,Calculated 296 (275-295); Phosphorous 2.8 mg/dL (2.4-5.1); Potassium 4.7 mMol/L (3.4-5.1); Sodium 147 mMol/L (136-145); Total Protein 6.1 gm/dL (5.7-8.2); eGFR > 60 See Note
[2025-04-07] MEDS: SODIUM CHLORIDE 0.9% 1000 ML 1,000 ML 80 ML IV (10:17)
[2025-04-07 10:31] LABS: Thyroid Stimulating Hormone 1.95 uIU/mL (0.55-4.78)
--- NOTE | 2025-04-07 12:05 | ESPR_ITS ---
Documentation for date of: 04/07/25 Subjective Subjective Interval history: Patient examined at bedside. No events overnight. This morning he is awake and responding. He is oriented to self only, BP slightly elevated 153/95, otherwise vitals are stable. Sodium uptrending 147, NARA resolved with creatinine 1.1. And hyperkalemia has resolved. Will continue IV fluids. Family was at bedside and updated with all questions answered to full. They stated that this is not his baseline and their is concern for some dementia. MRI brain negative for any acute changes. Resume p.o. meds as he passed swallow eval. EEG and physical therapy are pending. IV lorazepam for any breakthrough seizures. Exam Vital Signs Temp Pulse Resp BP Pulse Ox O2 Del Method O2 Flow Rate 97.9 F 77 21 H 151/87 H 96 Room Air 1 04/07/25 11:58 04/07/25 11:58 04/07/25 11:58 04/07/25 11:58 04/07/25 11:58 04/07/25 11:58 04/06/25 20:00 Narrative Exam General: Elder male, awake, answers simple questions but still confused. HEENT: NCAT, No JVD noted. Mucosa moist. Pupils are equal and reactive to light bilaterally Cardiovascular: Normal S1 and S2. Regular rate and rhythm. Respiratory: Lungs are clear to auscultation bilaterally. No wheezing or crackles heard. Abdomen: Soft, nontender, not distended, normal bowel sounds. Skin: Warm to touch, dry, no rashes noted Musculoskeletal: No gross injuries. Doesn't want legs to be examined. 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 Neuro: No focal neuro deficits. Oriented to self only Objective Labs 04/07/25 05:21 04/07/25 05:21 Labs: Laboratory Results - last 24 hr 04/06/25 04/06/25 04/06/25 11:02 12:49 16:22 WBC RBC Hgb Hct MCV MCH MCHC RDW Std Deviation Plt Count Neut % (Auto) Lymph % (Auto) [place] % (Auto) Eos % (Auto) Baso % (Auto) Neut # (Auto) Lymph # (Auto) [place] # (Auto) Eos # (Auto) Baso # (Auto) Immature Gran # (Auto) Absolute Nucleated RBC Immature Gran % Nucleated RBC % Sodium 144 146 H Potassium 6.1 H* D 4.0 D Chloride 109 H 111 H Carbon Dioxide 23.1 25.9 Anion Gap 12 9 BUN 34 H 24 H Creatinine 1.5 H 1.2 Estim Creat Clear Calc Not Performed. Not Performed. eGFR 49 L > 60 BUN/Creatinine Ratio 23 H 20 Glucose [address] Glu mg/dL Hemoglobin A1c Calculated Osmolality 293 295 Lactic Acid 1.3 Calcium 9.7 9.3 Corrected Calcium Phosphorus Magnesium Total Bilirubin AST ALT Alkaline Phosphatase Total Protein Albumin Globulin Albumin/Globulin Ratio TSH 04/07/25 05:21 WBC 11.3 H RBC 4.46 L Hgb 13.7 Hct 38.3 L MCV 86 MCH 30.7 MCHC 35.8 RDW Std Deviation 43.4 Plt Count 264 D Neut % (Auto) 74 Lymph % (Auto) 16 [place] % (Auto) 9 Eos % (Auto) 0 Baso % (Auto) 0 Neut # (Auto) 8.4 H Lymph # (Auto) 1.8 [place] # (Auto) 1.0 H Eos # (Auto) 0.0 Baso # (Auto) 0.0 Immature Gran # (Auto) 0.03 H Absolute Nucleated RBC 0.00 Immature Gran % 0 Nucleated RBC % 0 Sodium 147 H Potassium 4.7 D Chloride 110 H Carbon Dioxide 27.0 Anion Gap 10 BUN 22 Creatinine 1.1 Estim Creat Clear Calc Not Performed. eGFR > 60 BUN/Creatinine Ratio 20 Glucose [address] Glu mg/dL 100 Hemoglobin A1c 5.1 Calculated Osmolality 296 H Lactic Acid Calcium 9.1 Corrected Calcium 9.1 Phosphorus 2.8 Magnesium 2.0 Total Bilirubin 0.9 D AST 26 ALT 38 Alkaline Phosphatase 113 Total Protein 6.1 Albumin 4.0 Globulin 2.1 L Albumin/Globulin Ratio 1.9 TSH 1.95 ABG Interpretation ABG results: 04/06/25 07:15 VBG pH 7.37 VBG pCO2 43 VBG pO2 61 H VBG Base Excess -1 Quality Measures Quality Measures none Advance care planning discussed with:: patient Assessment & Plan Assessment Current Active Medications: Generic Name Dose Route Start Last Admin Trade Name Freq PRN Reason Stop Dose Admin Acetaminophen 650 mg 04/06/25 12:40 Acetaminophen 325 Mg Tablet PO 05/06/25 12:39 Q6H PRN Fever >100.3 or pain Heparin Sodium (Porcine) 5,000 unit 04/06/25 14:00 04/07/25 05:27 Heparin Sod Inj 5000 Unit/Ml Vial SC 04/20/25 13:59 5,000 unit Q8HR SIERRA Administration Sodium Chloride 1,000 mls @ 80 mls/hr 04/07/25 09:42 04/07/25 10:17 Ns IV 04/07/25 22:11 80 mls/hr .[id number] Administration Lactulose 10 gm 04/06/25 12:40 Lactulose Syrup 20 Gm/30 Ml Udc PO 05/06/25 12:44 QDAY PRN constipation Protocol Levetiracetam 1,000 mg 04/06/25 09:00 04/07/25 12:03 Levetiracetam Inj 100 Mg/Ml Vial 5ml IVP 05/06/25 08:59 Not Given Q12HR SIERRA Lorazepam 2 mg 04/06/25 14:20 Lorazepam 2 Mg/Ml Vial IVP 04/11/25 14:19 X1 PRN Seizure Activity Ondansetron HCl 4 mg 04/06/25 12:40 Ondansetron Inj 2 Mg/Ml Inj 2 Ml IVP 05/06/25 12:39 Q6H PRN NAUSEA OR VOMITING Protocol Plan Jerry Brooks is 75 yr male with PMH of hypertension, hypothyroidism, chronic back pain presenting to ED 04/06/25 by via EMS due to altered mental status and family witnessing abnormal right arm movement. Concern for new onset siezure. Neurology Dr. Miller was consulted and patient admitted for acute encephalopathy 2/2 new onset seizure and electrolyte imbalances. #Acute metabolic encephalopathy Most likely due to new onset seizure, electrolytes imbalances. No identifiable source of infection, normal lactic acid. Family witnessed him making slow circular movements of right arm. He was responding to prompts but not making sense. CT head Negative for acute hemorrhage, mass effect or midline shift. 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 Potassium uptrended to 6.1 in ED. He was given loading dose of Keppra, half liter bolus NS, maintenance fluids NS, hyperkalemia cocktail. TSH normal -Dr. Miller consulted, appreciate recs -EEG pending -swallow eval--passed -IV lorazepam 2 mg as needed for seizure -Aspiration precaution -Head of bed elevation -Seizure precaution -PT pending #NARA-resolved BUN 34, Cr 1.5 (baseline around 1.0), BUN/Cr 23. Pre renal based off ratio. Likely in setting of decreased PO intake. -maintenance fluids NS 85cc/hr -avoid nephrotoxic agents -daily CMP # Electrolyte imbalances #Hyperkalemia-resolved Medication induced, underlying NARA Potassium 5.3 with repeat uptrended to 6.1. Gave 10 units regular insulin x 1, Kayexalate, albuterol, calcium gluconate -repeat BMP 4pm -daily CMP -repeat inuslin 10 units regular x1 if still elevated #Hypertension Resume valsartan 160mg-HCTZ 12.5 mg daily #chronic back pain From a fall. Resume home norco 10 q8hr PRN for pain after EEG. 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 Health maintenance: Dispo: tele new onset seizure, pending EEG FEN: dysphagia pureed DVT prophylaxis: Subcu heparin CODE STATUS: Full code The patient's management plan was discussed with my attending physician Dr. Martines. Amberly Burgess, PGY-1 Attending Provider Attestation/Addendum I attest that I was physically present for the evaluation, physical examination, lab and imaging review of the patient with the residents. I discussed the case with the residents and agree with the findings and plans of care as documented above. At bedside today, patient is alert and awake, calmer compared to yesterday. Continues to be confused but was able to answer simple questions follow commands appropriately. Family at bedside stated that patient is not at his baseline. Also explained that patient has been having symptoms of dementia for last 2 years but has not been formally diagnosed. CT head done yesterday was concerning for old infarct but MRI head negative for any acute finding only shows chronic microvascular changes. Continues to be on IV Keppra, as needed lorazepam, seizure precaution, aspiration precautions. Neurology following closely, appreciate recommendations. EEG pending. Kidney function has been improving, we will continue with maintenance IV hydration. Brandan Martines MD
[2025-04-07] MEDS: levETIRAcetam INJ 100 MG/ML VIAL 5ML 1000 MG IVP ×2 (13:57→21:31)
[2025-04-07] MEDS: ACETAMINOPHEN 325 MG TABLET 650 MG PO ×2 (14:10→21:32)
--- NOTE | 2025-04-07 20:56 | PD.NEUROPROG ---
Documentation for date of: 04/07/25 Subjective Subjective Interval history: Patient was seen in telemetry today at the bedside, no recurrent sz like episodes or abnormal involuntary movements noted after admission. states that he has been under lots of stress as he and his needs to take care of the grand kids. Exam - Neurology Vital Signs Temp Pulse Resp BP Pulse Ox O2 Del Method O2 Flow Rate 97.5 F 75 12 124/73 97 Room Air 1 04/07/25 20:00 04/07/25 20:00 04/07/25 20:00 04/07/25 20:00 04/07/25 20:00 04/07/25 20:00 04/06/25 20:00 Narrative Exam GENERAL APPEARANCE: Well hydrated, well-nourished in no acute distress. HEENT: Normocephalic, atraumatic, extraocular movements intact. Pupils: Equal reacting to light. NECK: Supple, no JVD or bruits. CARDIOVASULAR: Heart: S1, S2 heard, regular without S3-S4 or murmur no rubs or gallops. LUNGS/CHEST: Clear to auscultation bilaterally. No rails, rhonchi, or wheezing. Normal inspection. ABDOMEN: Soft, nontender, with normal bowel sounds. No pulsatile masses. No rebound, rigidity, or guarding. Normal inspection and palpation. EXTREMITIES: Normal inspection and palpation. No edema, clubbing or cyanosis. SKIN: Warm and dry without rashes. Normal inspection. MUSCULOSKELETAL: No cervical, thoracic, lumbar or midline bony tenderness. Normal inspection. NEURO: Alert, awake and oriented x3. Cranial nerves: II through XII grossly intact. Speech and language: normal with no dysarthria. Motor system: Tone and bulk: Normal: Strength: moves all 4 extremities; No pronator drift noted. Deep tendon reflexes: 1+ bilaterally symmetrical. Plantar reflex: Downgoing bilaterally. Sensory system: Intact to pin prick sensation bilaterally. Gait: not tested. No signs of meningeal irritation noted. PSYCHIATRIC: Normal mood and affect. Objective Labs 04/07/25 05:21 04/07/25 05:21 Labs: Laboratory Results - last 24 hr 04/07/25 05:21 WBC 11.3 H RBC 4.46 L Hgb 13.7 Hct 38.3 L MCV 86 MCH 30.7 MCHC 35.8 RDW Std Deviation 43.4 Plt Count 264 D Neut % (Auto) 74 Lymph % (Auto) 16 [place] % (Auto) 9 Eos % (Auto) 0 Baso % (Auto) 0 Neut # (Auto) 8.4 H Lymph # (Auto) 1.8 [place] # (Auto) 1.0 H Eos # (Auto) 0.0 Baso # (Auto) 0.0 Immature Gran # (Auto) 0.03 H Absolute Nucleated RBC 0.00 Immature Gran % 0 Nucleated RBC % 0 Sodium 147 H Potassium 4.7 D Chloride 110 H Carbon Dioxide 27.0 Anion Gap 10 BUN 22 Creatinine 1.1 Estim Creat Clear Calc Not Performed. eGFR > 60 BUN/Creatinine Ratio 20 Glucose [address] Glu mg/dL 100 Hemoglobin A1c 5.1 Calculated Osmolality 296 H Calcium 9.1 Corrected Calcium 9.1 Phosphorus 2.8 Magnesium 2.0 Total Bilirubin 0.9 D AST 26 ALT 38 Alkaline Phosphatase 113 Total Protein 6.1 Albumin 4.0 Globulin 2.1 L Albumin/Globulin Ratio 1.9 TSH 1.95 ABG Interpretation ABG results: 04/06/25 07:15 VBG pH 7.37 VBG pCO2 43 VBG pO2 61 H VBG Base Excess -1 Assessment & Plan Assessment and plan (1) New onset seizure: Status: Acute Assessment and plan: fu with EEG MRI brain: resulted negative (2) Hypertension: Status: Chronic Assessment and plan: under control (3) Hyperkalemia: Status: Acute Assessment and plan: normalized now (4) NARA (acute kidney injury): Status: Resolved
[2025-04-08] VITALS (10 sets, daily range): BP systolic 134–168; BP diastolic 79–102; PULSE 54–79; RESP 12–98; TEMP 36.4–36.7; O2SAT 96–98; BMI 20.9
[2025-04-08] MEDS: ACETAMINOPHEN 325 MG TABLET 650 MG PO (05:00)
[2025-04-08] MEDS: HEPARIN SOD INJ 5000 UNIT/ML VIAL SC ×3 (05:01→21:58)
[2025-04-08 06:00] LABS: Basophils % (Auto) 1 % (0-2.5); Eosinophils # (Auto) 0.1 Thou/mm3 (0.0-0.5); Eosinophils % (Auto) 2 % (0-10); Hemoglobin 12.5 g/dL (13.5-16.0); Immature Granulocytes % (Auto) 0 % (0-0); Immature Granulocytes Auto 0.02 Thou/mm3 (0.00-0.00); Lymphocytes # (Auto) 2.7 Thou/mm3 (1.0-4.8); Lymphocytes % (Auto) 39 % (10-50); Mean Corpuscular HGB Conc 35.7 g/dl (31.0-37.0); Mean Corpuscular Hemoglobin 30.3 pg (25.0-35.0); Mean Corpuscular Volume 85 fL (80-100); Monocytes # (Auto) 0.8 Thou/mm3 (0.0-0.8); Monocytes % (Auto) 11 % (0-12); Neutrophils # (Auto) 3.2 Thou/mm3 (1.8-7.7); Neutrophils % (Auto) 47 % (37-80); Nucleated Red Blood Cell % 0 /100 WBC (0); Platelet Count 266 Thou/mm3 (140-440); RDW Standard Deviation 42.3 fL (35.1-43.9); Red Blood Count 4.13 Miln/mm3 (4.50-5.90); White Blood Count 6.8 Thou/mm3 (3.8-10.6)
[2025-04-08 06:35] LABS: Alanine Aminotransferase 112 U/L (10-49); Albumin, Serum 3.6 gm/dL (3.4-4.8); Albumin/Globulin Ratio 1.8 (1.2-2.2); Alkaline Phosphatase 121 U/L (46-116); Anion Gap 8 (7-16); Aspartate Amino Transferase 81 U/L (0-34); BUN/Creatinine Ratio 20 Ratio (12-20); Bilirubin,Total 1.1 mg/dL (0.3-1.2); Blood Urea Nitrogen 18 mg/dL (9-23); Calcium 8.6 mg/dL (8.3-10.6); Calcium (Corrected) 8.9 mg/dL (8.5-10.1); Carbon Dioxide 25.5 mMol/L (20.0-31.0); Chloride 110 mMol/L (98-107); Creatinine (Component) 0.9 mg/dL (0.6-1.3); Estimated Creatinine Clearance 72.6 mL/min (>60); Glucose 107 mg/dL (74-106); Osmolality,Calculated 286 (275-295); Potassium 4.1 mMol/L (3.4-5.1); Sodium 143 mMol/L (136-145); Total Protein 5.6 gm/dL (5.7-8.2); eGFR > 60 See Note
--- NOTE | 2025-04-08 11:56 | ESPR_ITS ---
Documentation for date of: 04/08/25 Subjective Subjective Interval history: Patient examined at bedside. Last night family noticed some agitation and confusion. Also complaining of headache which appears to be chronic. Otherwise this morning he is awake and responding. Mentation improving he is AOx3. BP slightly elevated 134/79, otherwise vitals are stable. Sodium 143, NARA resolved Cr 0.9 today. Mild transaminitis likely due to multiple doses of Tylenol he received overnight. Physical exam abdomen is benign. Family was at bedside and updated with all questions answered to full. Continue to be concerned about dementia and his confusion. They were reassured and encouraged to wait for EEG results. MRI brain negative for any acute changes. EEG and physical therapy are pending. IV lorazepam for any breakthrough seizures. Exam Vital Signs Temp Pulse Resp BP Pulse Ox O2 Del Method O2 Flow Rate 97.5 F 59 L 15 149/80 H 98 Room Air 1 04/08/25 08:00 04/08/25 08:00 04/08/25 08:00 04/08/25 08:00 04/08/25 08:00 04/08/25 08:00 04/06/25 20:00 Narrative Exam General: Elder male, awake, answers simple questions but still confused. HEENT: NCAT, No JVD noted. Mucosa moist. Pupils are equal and reactive to light bilaterally Cardiovascular: Normal S1 and S2. Regular rate and rhythm. Respiratory: Lungs are clear to auscultation bilaterally. No wheezing or crackles heard. Abdomen: Soft, nontender, not distended, normal bowel sounds. Skin: Warm to touch, dry, no rashes noted Musculoskeletal: No gross injuries. Doesn't want legs to be examined. 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 Neuro: No focal neuro deficits. AOx3 Objective Labs 04/08/25 05:28 04/08/25 05:28 Labs: Laboratory Results - last 24 hr 04/08/25 05:28 WBC 6.8 RBC 4.13 L Hgb 12.5 L Hct 35.0 L MCV 85 MCH 30.3 MCHC 35.7 RDW Std Deviation 42.3 Plt Count 266 Neut % (Auto) 47 Lymph % (Auto) 39 [place] % (Auto) 11 Eos % (Auto) 2 Baso % (Auto) 1 Neut # (Auto) 3.2 Lymph # (Auto) 2.7 [place] # (Auto) 0.8 Eos # (Auto) 0.1 Baso # (Auto) 0.0 Immature Gran # (Auto) 0.02 H Absolute Nucleated RBC 0.00 Immature Gran % 0 Nucleated RBC % 0 Sodium 143 Potassium 4.1 D Chloride 110 H Carbon Dioxide 25.5 Anion Gap 8 BUN 18 Creatinine 0.9 Estim Creat Clear Calc 72.6 eGFR > 60 BUN/Creatinine Ratio 20 Glucose 107 H Calculated Osmolality 286 Calcium 8.6 Corrected Calcium 8.9 Total Bilirubin 1.1 AST 81 H ALT 112 H Alkaline Phosphatase 121 H Total Protein 5.6 L Albumin 3.6 Globulin 2.0 L Albumin/Globulin Ratio 1.8 ABG Interpretation ABG results: 04/06/25 07:15 VBG pH 7.37 VBG pCO2 43 VBG pO2 61 H VBG Base Excess -1 Quality Measures Quality Measures none Advance care planning discussed with:: spouse Assessment & Plan Assessment Current Active Medications: Generic Name Dose Route Start Last Admin Trade Name Freq PRN Reason Stop Dose Admin Acetaminophen 650 mg 04/06/25 12:40 04/08/25 05:00 Acetaminophen 325 Mg Tablet PO 05/06/25 12:39 650 mg Q6H PRN Administration Fever >100.3 or pain Heparin Sodium (Porcine) 5,000 unit 04/06/25 14:00 04/08/25 05:01 Heparin Sod Inj 5000 Unit/Ml Vial SC 04/20/25 13:59 5,000 unit Q8HR SIERRA Administration Lactulose 10 gm 04/06/25 12:40 Lactulose Syrup 20 Gm/30 Ml Udc PO 05/06/25 12:44 QDAY PRN constipation Protocol Levetiracetam 1,000 mg 04/06/25 09:00 04/08/25 09:41 Levetiracetam Inj 100 Mg/Ml Vial 5ml IVP 05/06/25 08:59 Not Given Q12HR SIERRA Lorazepam 2 mg 04/06/25 14:20 Lorazepam 2 Mg/Ml Vial IVP 04/11/25 14:19 X1 PRN Seizure Activity Ondansetron HCl 4 mg 04/06/25 12:40 Ondansetron Inj 2 Mg/Ml Inj 2 Ml IVP 05/06/25 12:39 Q6H PRN NAUSEA OR VOMITING Protocol Plan Jerry Brooks is 75 yr male with PMH of hypertension, hypothyroidism, chronic back pain presenting to ED 04/06/25 by via EMS due to altered mental status and family witnessing abnormal right arm movement. Concern for new onset siezure. Neurology Dr. Miller was consulted and patient admitted for acute encephalopathy 2/2 new onset seizure and electrolyte imbalances. #Acute metabolic encephalopathy-resolving Most likely due to new onset seizure, electrolytes imbalances. No identifiable source of infection, normal lactic acid. Family witnessed him making slow circular movements of right arm. He was responding to prompts but not making sense. CT head Negative for acute hemorrhage, mass effect or midline shift. 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 Potassium uptrended to 6.1 in ED. He was given loading dose of Keppra, half liter bolus NS, maintenance fluids NS, hyperkalemia cocktail. TSH normal -Dr. Miller consulted, appreciate recs -EEG pending -swallow eval--passed -IV lorazepam 2 mg as needed for seizure -Aspiration precaution -Head of bed elevation -Seizure precaution -PT pending #NARA-resolved BUN 34, Cr 1.5 (baseline around 1.0), BUN/Cr 23. Pre renal based off ratio. Likely in setting of decreased PO intake. -maintenance fluids NS 85cc/hr -avoid nephrotoxic agents -daily CMP # Electrolyte imbalances #Hyperkalemia-resolved Medication induced, underlying NARA Potassium 5.3 with repeat uptrended to 6.1. Gave 10 units regular insulin x 1, Kayexalate, albuterol, calcium gluconate -repeat BMP 4pm -daily CMP -repeat inuslin 10 units regular x1 if still elevated #Hypertension Resume valsartan 160mg-HCTZ 12.5 mg daily #chronic back pain From a fall. Resume home norco 10 q8hr PRN for pain after EEG. 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 Health maintenance: Dispo: tele new onset seizure, pending EEG FEN: dysphagia pureed DVT prophylaxis: Subcu heparin CODE STATUS: Full code The patient's management plan was discussed with my attending physician Dr. Martines. Amberly Burgess, PGY-1 Attending Provider Attestation/Addendum I attest that I was physically present for the evaluation, physical examination, lab and imaging review of the patient with the residents. I discussed the case with the residents and agree with the findings and plans of care as documented above. At bedside today, patient appears comfortable. He is alert and awake, oriented x 3, able to answer questions and follow commands appropriately. Denies any new complaints. No focal neurological deficits on exam. No new episodes of seizure or abnormal body movement. Brain MRI has been negative, neurology following closely, appreciate recommendations. Patient was being prepared for EEG at bedside, we will follow-up on results. Kidney function have been improving, patient is tolerating diet well. Awaiting EEG and physical therapy evaluation. Brandan Martines MD
--- NOTE | 2025-04-08 13:02 | PC.SS ---
Patient is an 75YO male admitted to Telemetry, Reason for visit: SEIZURE SS met with patient at bedside, role and purpose of contact was explained to patient. Patient confirmed his demographic information. He stated his spouse Pretty Brooks [phone] is his primary medical surrogate decisionmaker. Patient reported being independent with ADL completion. Patient ambulates independently. Pharmacy: [facility], [facility]. PCP: Dr. Lebron, last appt. was 03/26/25 Next of kin: Spouse Pretty Brooks [phone] Discharge plan: Home, spouse to provide transportation.
[2025-04-08] MEDS: hydroCHLOROthiazide 12.5 MG CAPSULE PO (13:37)
[2025-04-08] MEDS: VALSARTAN 80 MG TABLET 160 MG PO (13:38)
--- NOTE | 2025-04-08 16:55 | PC.SS ---
Rounding note: EEG to be done today, PT and neurology recommendations pending.
--- NOTE | 2025-04-08 17:40 | PC.PT ---
Patient is safe to ambulate to the bathroom and in the halls with a FWW, the TLSO, and 1 staff assist. RN made aware.
[2025-04-08] MEDS: levETIRAcetam INJ 100 MG/ML VIAL 5ML 1000 MG IVP (21:59)
[2025-04-09] VITALS: BP 125/90; PULSE 70; PULSE 71; RESP 15; TEMP 36.1; O2SAT 96
--- NOTE | 2025-04-09 00:05 | PD.NEUROPROG ---
Documentation for date of: 04/09/25 Subjective Subjective Interval history: Patient was seen in telemetry today at the bedside, no recurrent sz like episodes or abnormal involuntary movements noted after admission. states that he has been under lots of stress as he and his needs to take care of the grand kids. Exam - Neurology Vital Signs Temp Pulse Resp BP Pulse Ox O2 Del Method O2 Flow Rate 98.0 F 77 19 157/98 H 96 Room Air 1 04/08/25 20:00 04/08/25 20:00 04/08/25 20:00 04/08/25 20:00 04/08/25 20:00 04/08/25 20:00 04/06/25 20:00 Narrative Exam GENERAL APPEARANCE: Well hydrated, well-nourished in no acute distress. HEENT: Normocephalic, atraumatic, extraocular movements intact. Pupils: Equal reacting to light. NECK: Supple, no JVD or bruits. CARDIOVASULAR: Heart: S1, S2 heard, regular without S3-S4 or murmur no rubs or gallops. LUNGS/CHEST: Clear to auscultation bilaterally. No rails, rhonchi, or wheezing. Normal inspection. ABDOMEN: Soft, nontender, with normal bowel sounds. No pulsatile masses. No rebound, rigidity, or guarding. Normal inspection and palpation. EXTREMITIES: Normal inspection and palpation. No edema, clubbing or cyanosis. SKIN: Warm and dry without rashes. Normal inspection. MUSCULOSKELETAL: No cervical, thoracic, lumbar or midline bony tenderness. Normal inspection. NEURO: Alert, awake and oriented x3. Cranial nerves: II through XII grossly intact. Speech and language: normal with no dysarthria. Motor system: Tone and bulk: Normal: Strength: moves all 4 extremities; No pronator drift noted. Deep tendon reflexes: 1+ bilaterally symmetrical. Plantar reflex: Downgoing bilaterally. Sensory system: Intact to pin prick sensation bilaterally. Gait: not tested. No signs of meningeal irritation noted. PSYCHIATRIC: Normal mood and affect. Objective Labs 04/09/25 04:43 04/09/25 04:43 Labs: Laboratory Results - last 24 hr 04/08/25 05:28 WBC 6.8 RBC 4.13 L Hgb 12.5 L Hct 35.0 L MCV 85 MCH 30.3 MCHC 35.7 RDW Std Deviation 42.3 Plt Count 266 Neut % (Auto) 47 Lymph % (Auto) 39 [place] % (Auto) 11 Eos % (Auto) 2 Baso % (Auto) 1 Neut # (Auto) 3.2 Lymph # (Auto) 2.7 [place] # (Auto) 0.8 Eos # (Auto) 0.1 Baso # (Auto) 0.0 Immature Gran # (Auto) 0.02 H Absolute Nucleated RBC 0.00 Immature Gran % 0 Nucleated RBC % 0 Sodium 143 Potassium 4.1 D Chloride 110 H Carbon Dioxide 25.5 Anion Gap 8 BUN 18 Creatinine 0.9 Estim Creat Clear Calc 72.6 eGFR > 60 BUN/Creatinine Ratio 20 Glucose 107 H Calculated Osmolality 286 Calcium 8.6 Corrected Calcium 8.9 Total Bilirubin 1.1 AST 81 H ALT 112 H Alkaline Phosphatase 121 H Total Protein 5.6 L Albumin 3.6 Globulin 2.0 L Albumin/Globulin Ratio 1.8 ABG Interpretation ABG results: 04/06/25 07:15 VBG pH 7.37 VBG pCO2 43 VBG pO2 61 H VBG Base Excess -1 Assessment & Plan Assessment and plan (1) New onset seizure: Status: Acute Assessment and plan: EEG: showed epileptiform discharges in both anterior temporal and temporal areas. MRI brain: showed mild vascular dementia Needs to stay on keppra 500 mg bid with close monitoring for behavior and mood No driving stable for dc home, FU in 1-2 weeks. (2) Hypertension: Status: Chronic Assessment and plan: under control (3) Hyperkalemia: Status: Resolved Assessment and plan: normalized now (4) NARA (acute kidney injury): Status: Resolved
[2025-04-09 04:00] VITALS: BP 123/91; PULSE 77; PULSE 81; RESP 18; TEMP 36.4; O2SAT 96
[2025-04-09 05:17] LABS: Basophils % (Auto) 0 % (0-2.5); Eosinophils # (Auto) 0.1 Thou/mm3 (0.0-0.5); Eosinophils % (Auto) 2 % (0-10); Hematocrit 38.2 % (41.0-53.0); Hemoglobin 14.1 g/dL (13.5-16.0); Immature Granulocytes % (Auto) 0 % (0-0); Immature Granulocytes Auto 0.01 Thou/mm3 (0.00-0.00); Lymphocytes # (Auto) 2.3 Thou/mm3 (1.0-4.8); Lymphocytes % (Auto) 34 % (10-50); Mean Corpuscular HGB Conc 36.9 g/dl (31.0-37.0); Mean Corpuscular Hemoglobin 30.8 pg (25.0-35.0); Mean Corpuscular Volume 83 fL (80-100); Monocytes # (Auto) 0.7 Thou/mm3 (0.0-0.8); Monocytes % (Auto) 10 % (0-12); Neutrophils # (Auto) 3.6 Thou/mm3 (1.8-7.7); Neutrophils % (Auto) 54 % (37-80); Nucleated Red Blood Cell % 0 /100 WBC (0); Platelet Count 288 Thou/mm3 (140-440); RDW Standard Deviation 40.9 fL (35.1-43.9); Red Blood Count 4.58 Miln/mm3 (4.50-5.90); White Blood Count 6.8 Thou/mm3 (3.8-10.6)
[2025-04-09 05:42] LABS: Alanine Aminotransferase 142 U/L (10-49); Albumin, Serum 3.9 gm/dL (3.4-4.8); Albumin/Globulin Ratio 1.9 (1.2-2.2); Alkaline Phosphatase 154 U/L (46-116); Anion Gap 5 (7-16); Aspartate Amino Transferase 68 U/L (0-34); BUN/Creatinine Ratio 21 Ratio (12-20); Bilirubin,Total 0.8 mg/dL (0.3-1.2); Blood Urea Nitrogen 19 mg/dL (9-23); Calcium (Corrected) 9.1 mg/dL (8.5-10.1); Carbon Dioxide 25.8 mMol/L (20.0-31.0); Chloride 108 mMol/L (98-107); Creatinine (Component) 0.9 mg/dL (0.6-1.3); Estimated Creatinine Clearance 72.6 mL/min (>60); Globulin 2.1 gm/dL (2.3-3.5); Glucose 116 mg/dL (74-106); Osmolality,Calculated 280 (275-295); Potassium 4.3 mMol/L (3.4-5.1); Sodium 139 mMol/L (136-145); eGFR > 60 See Note
[2025-04-09] MEDS: HEPARIN SOD INJ 5000 UNIT/ML VIAL SC (05:42)
[2025-04-09 06:00] VITALS: BMI 20.9
[2025-04-09 06:53] VITALS: PULSE 85; RESP 16; RESP 97
[2025-04-09 08:00] VITALS: BP 147/95; PULSE 73; PULSE 79; RESP 18; TEMP 36.5; O2SAT 15
--- NOTE | 2025-04-09 08:33 | PC.SS ---
Per physical therapy, the patient will need a rollator walker. Walkers The diagnosis creates mobility limitation that significantly impairs ability to participate in the patients activities of daily living either in their entirety, or in a reasonable time frame. Also the patient is able to safely use the walker and the patient?s mobility is sufficiently resolved with the use of the walker and cane has been ruled out.
[2025-04-09 09:39] VITALS: BP 147/95; PULSE 79
[2025-04-09] MEDS: hydroCHLOROthiazide 12.5 MG CAPSULE PO (09:39)
[2025-04-09] MEDS: VALSARTAN 80 MG TABLET 160 MG PO (09:39)
--- NOTE | 2025-04-09 10:10 | ESDS_ITS ---
<Statement entered by Isha Gregory MD - 04/09/25 16:11> Family meeting and medication discussion Multiple family meetings were held during the patient's hospital stay regarding antiepileptic management. The patient's expressed ongoing concern about the use of Keppra stating that she did not believe it was an appropriate choice for the patient due to perceived side effects, including confusion and concern about potential liver damage. This morning, nursing staff reported that the patient's 2 daughters were at the bedside and requested to speak with the medical team regarding medications. EEG performed yesterday confirmed the presence of active seizure activity. Per neurology recommendations the patient must be maintained on Keppra 500 mg p.o. twice daily. We held on in-depth discussion with the and both daughters, during which we reviewed the risks and benefits of Keppra therapy. We explained that untreated seizures carry significant risk, including the potential for recurrent seizures, irreversible brain injury and even . Despite this explanations, the family remained hesitant and stated that they do not believe the patient requires seizure medication. They requested to be sent home with a few tablets of Keppra and stated that they will decide whether or not to administer the medication. The risks of nonadherence were clearly communicated. The nurse Kindra was at bedside too. The patient's reported that she is usually present with the patient and can recognize the early signs of seizure activity. She stated that she plans to administer oral Ativan if she observes sign of on impending seizure. We discussed that administering oral medications during the seizure is not advisable due to the risk of aspiration and limited efficacy and that there may be situations when she is not present to intervene in the timely manner. The family also reported that they were previously informed by another physician that the patient's seizure was due to dehydration and hyperkalemia. We clarified that while metabolic abnormalities and stress may act as a precipitating factors, they are not the primary cause. EEG findings confirmed active seizure activity and based on these results a new diagnosis of an acute seizure disorder was made. It is important to note that prior to the EEG results, psychogenic nonepileptic seizures(pseudoseizures) were considered as part of the differential diagnosis. However EEG confirmed acute new onset seizure. We emphasized that per neurology recommendations, the patient should continue Keppra 500 mg twice daily. Outpatient neurology follow-up is advised to reassess the need for long-term antiepileptic therapy and consider tapering or alternative medications if appropriate. The family was informed that any changes to therapy should occur under neurology supervision in the outpatient setting. The risk of nonadherence were discussed extensively. We stressed the importance of medication compliance, as continued use of Keppra significantly reduces the risk of recurrent seizures, brain injury and other complications. The family verbalized understanding but remained hesitant. They were provided Keppra tablets and plan to make a decision regarding its use after further discussion. Patient care was discussed with attending physician Dr. Mauricio Gregory MD PGY-2 I have carefully reviewed this document. Due to imperfections in the voice software, there could be grammatical errors including phonetic/typographic error s. This in no way compromises the medical care the patient is receiving Planned Discharge Date 04/09/25 DS: Providers Provider Date of admission: 04/06/25 12:40 Primary care physician: Physician Rufina Primary/Family Admitting Provider: Brandan Martines MD Attending Provider on Admission: Jonathan Martínez MD Consults: 04/06/25 14:18 Consult to Neurology / Tele-Neurology Stat Comment: Consulting Provider: Daniel Miller 04/06/25 14:22 Referral Physical Therapy Routine Comment: Physician Instructions: 04/06/25 15:02 Referral Speech Therapy Routine Comment: 04/07/25 08:15 Referral - COLLAR SEPARATOR Psych Social Worker Routine Comment: aidan Momin Attending Provider on DC: Jonathan Martínez MD Discharging Provider: Jonathan Martínez MD DS: Diagnosis Problem List Completed Was Problem List Reviewed/Reconciled?: Yes Hospital Course Hospital Course Hospital course: Reason for hospitalization: acute encephalopathy 2/2 new onset seizure Jerry Brooks is 75 yr male with PMH of hypertension, hypothyroidism, chronic back pain presenting to [facility] ED on 04/06/25 by EMS due to AMS and family witnessing abnormal right arm movement. Patient's was at bedside who was able to provide video. Appeared that the right arm was rotating in a slow circular movement. He was responding to prompts but not making sense. denies noticing any tounge biting, bladder/bowel incontinence. Patient typically is able to complete ADLs with no issues. EMS administered about 12 mg of Versed and denied noticing any tonic clonic activity. He has never had seizures in the past. The arm movement had stopped after arriving to the ED. Initial vitals were stable, WBC 11.6, VBG unremarkable. Hyperkalemia (6.1) was treated and resolved. NARA with Cr 1.5 (baseline around 1.0), normal LA, UA negative, Utox positive fore opiates and benzos. CT head Negative for acute hemorrhage, mass effect or midline shift. 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 CT lumbar spine showed severe subacute compression fracture L2 vertebral body. He was given loading dose of Keppra. Neurology Dr. Miller was consulted and patient admitted for acute encephalopathy 2/2 new onset seizure. NARA resolved with adequate fluids. EEG was abnormal with epileptiform discharges, MRI brain showed mild vascular dementia. He remains seizure-free with improvement in mentation. Patient was alert and oriented x 3. Patient and family were informed of these findings. Hospitalist team and neurology stated that patient needs to stay on keppra 500mg BID until follow up outpatient. Multiple family meetings were held during the patient's hospital stay regarding antiepileptic management. They were concerened about side effects. We reasurred family many times that benefits outweigh the risks. Unsure at this time if patient will be compliant with the Keppra. Please refer to senior note above for further detail of family meeting/discussion. Patient is now in stable condition and ready for discharge. Recommendations were given as below. Discharge Recommendations: Resume previous medications. Start taking Keppra 500 mg twice daily until you follow up with neurology due to new onset seizures. Do not drive until you have seen the neurologist. Follow up with neurology in 1 weeks. Follow up with PCP in 1-2 weeks and repeat chemistry panel in 1 week. Hospital Diagnoses: #Acute metabolic encephalopathy #New onset seizure #Vascular dementia #NARA # Electrolyte imbalances #Hyperkalemia #Hypertension #chronic back pain #Hypothyroidism The patient's management plan was discussed with my attending physician Dr. Mauricio Burgess MD, PGY-1 Time Spent with Patient Time attestation: Total time spent providing and/or coordinating discharge services: Time spent: Greater than 30 minutes Exam Vital Signs Temp Pulse Resp BP Pulse Ox O2 Del Method O2 Flow Rate 97.7 F 79 18 147/95 H 15 L Room Air 1 04/09/25 08:00 04/09/25 09:39 04/09/25 08:00 04/09/25 09:39 04/09/25 08:00 04/09/25 04:00 04/06/25 20:00 Narrative Exam General: Elder male, awake, cooperative HEENT: NCAT, No JVD noted. Mucosa moist. Pupils are equal and reactive to light bilaterally Cardiovascular: Normal S1 and S2. Regular rate and rhythm. Respiratory: Lungs are clear to auscultation bilaterally. No wheezing or crackles heard. Abdomen: Soft, nontender, not distended, normal bowel sounds. Skin: Warm to touch, dry, no rashes noted Musculoskeletal: No gross injuries. Doesn't want legs to be examined. Gun Welder strength 4/5 UE. Neuro: No focal neuro deficits. AOx3 Discharge Plan Plan Patient Disposition: HOME (Self Care) Patient condition on transfer: Stable Care Plan Goals: Resume previous medications. Start taking Keppra 500 mg twice daily until you follow up with neurology due to new onset seizures. Do not drive until you have seen the neurologist. Follow up with neurology in 1 weeks. Follow up with PCP in 1-2 weeks and repeat chemistry panel in 1 week. Prescriptions/Referrals Prescriptions/Med Rec: New levetiracetam [Keppra] 500 mg tablet 500 mg PO BID Qty: 60 0RF Continued loratadine 10 mg Tablet 10 mg PO QDAY PRN (Reason: Allergy Symptoms) hydrocodone-acetaminophen 10-325 mg tablet 1 tab PO Q8H PRN (Reason: pain) Patient Comments: TAKE 1 TABLET BY MOUTH EVERY 8 HOURS NEEDED FOR PAIN valsartan-hydrochlorothiazide 160-12.5 mg tablet 1 tab PO DAILY Patient Comments: TAKE 1 TABLET BY MOUTH EVERY DAY thyroid (pork) [MAPPING ANALYST Thyroid] 90 mg tablet 90 mg PO DAILY Discontinued levothyroxine 100 mcg Tablet 100 mcg PO QDAY lorazepam 1 mg Tablet 1 mg PO BID PRN (Reason: Anxiety) hydrocodone-acetaminophen [[place]] 5-325 mg tablet 1 tab PO Q6H MDD 4 PRN (Reason: pain) Qty: 14 0RF hydrocodone-acetaminophen 5-325 mg tablet 1 tab PO Q8H MDD 3 PRN (Reason: pain) Qty: 10 0RF thyroid (pork) [MAPPING ANALYST Thyroid] 90 mg tablet 90 mg PO QDAY Referrals: No Primary/Family,Physician [Primary Care Provider] - Daniel Miller MD [Physician] - Patient/Caregiver Discharge Instructions Other Discharge Activity Instructions:: Resume previous medications. Start taking Keppra 500 mg twice daily until you follow up with neurology due to new onset seizures. Do not drive until you have seen the neurologist. Follow up with neurology in 1 weeks. Follow up with PCP in 1-2 weeks and repeat chemistry panel in 1 week. Education Materials: Epilepsy How Seizures Affect Body, Dementia Patients Safety Tips, Acute Kidney Failure Dc, ED Confusion, ED Seizure New Onset Unknown ... Print Language: Pashto Stand Alone Forms: Joana Award Info., Patient Portal Info Letter Discharge Order Discharge Orders: Discharge (Routine); Ordered 04/09/25 Ordered By: Amberly Burgess Quality Discharge Quality Measures VTE prophylaxis MD Attestestation MD Attestation I have examined the patient, reviewed labs and imaging findings, discussed the case with the resident(s), and reviewed entered orders. I agree with the plan of care as outlined in this note. Time Spent: [address] Mauricio MD
--- NOTE | 2025-04-09 11:01 | PC.SS ---
SS follow up: DME inquiry for rollator walker sent via [employer].
[2025-04-09 12:00] VITALS: PULSE 79
--- NOTE | 2025-04-10 15:12 | CHAP ---
Patient was visited by a Spiritual Care Volunteer on 04/08/2025 between 0930 and 1200 and received comfort, encouragement and/or prayer.
== END 2025-04-09 12:10 | disposition home or self-care (01) | DRG 100 ==
LOC: SERX 11:53 → SERHOLD 13:00 → S2NX 15:44 → S3NX 04-08 23:24
PROVIDERS: Student in an Organized Health Care Education/Training Program; Admitting Provider Student in an Organized Health Care Education/Training Program; Emergency Provider Emergency Medicine; Visit Provider Student in an Organized Health Care Education/Training Program
DX: G40.901 Epilepsy, unspecified, not intractable, with status epilepticus (principal); G93.41 Metabolic encephalopathy; M48.56XA Collapsed vertebra, not elsewhere classified, lumbar region, initial encounter for fracture; N17.9 Acute kidney failure, unspecified; I10 Essential (primary) hypertension; M54.9 Dorsalgia, unspecified; E86.0 Dehydration; F01.A0 Vascular dementia, mild, without behavioral disturbance, psychotic disturbance, mood disturbance, and anxiety; E89.0 Postprocedural hypothyroidism; G89.29 Other chronic pain; E87.5 Hyperkalemia; Z88.2 Allergy status to sulfonamides; W19.XXXA Unspecified fall, initial encounter; Z79.899 Other long term (current) drug therapy; Z88.0 Allergy status to penicillin
CPT/HCPCS: 36415; 70450; 70551; 80048; 80053; 80307; 81001; 82803; 83036; 83605; 83735; 84100; 84132; 84443; 84484; 85025; 87040; 92526; 92610; 93225; 95816; 96361; 96372; 96374; 96375; 97163; 99291; J0612; J1200; J1644; J1815; J1953; J2060; J7030; J7999; A9270